=== PATIENT | male | born 1955 | race Caucasian/White ===

== ENCOUNTER 2016-09-25 13:20 | Emergency (ER) | payer OTHER ==
[~2016-09-25 13:20] MED LIST: ASPI-630 PO; DOXA8TAB59 PO; FEXO180T81 PO; FINA5TAB4 PO; MONT10TA9 PO; NEBI2.5T2 PO; PRAV20TA2 PO; TADA5TAB PO
[2016-09-25 13:57] LABS: BASO % 1 % (0-3); EOS # 0.1 x10^3/uL (0.0-0.7); EOS % 2 % (0-3); HEMOGLOBIN 15.6 g/dL (13.0-17.5); LYMPH # 0.8 x10^3/uL (1.0-4.8); LYMPH % 15 % (24-48); MEAN CORPUSCULAR HEMOGLOBIN 31 pg (25-35); MEAN CORPUSCULAR HGB CONC 35 g/dL (31-37); MEAN CORPUSCULAR VOLUME 88 fL (79-100); MONO # 0.3 x10^3/uL (0.0-1.1); MONO % 6 % (0-9); NEUT # 4.1 x10^3uL (1.8-7.7); NEUT % 76 % (31-73); PLATELET COUNT 241 x10^3/uL (140-400); RED BLOOD COUNT 5.09 x10^6/uL (4.30-5.70); RED CELL DISTRIBUTION WIDTH 13.9 % (11.5-14.5); WHITE BLOOD COUNT 5.4 x10^3/uL (4.0-11.0)
[2016-09-25] MEDS ORDERED: IV NORMAL SALINE 1,000ML 1,000 ML IV ONE (14:00)
[2016-09-25] MEDS ORDERED: ONDANSETRON PF 4 MG/2 ML VIAL. IV ONE (14:00)
[2016-09-25] MEDS ORDERED: MECLIZINE 25 MG TABLET PO ONE (14:00)
[2016-09-25 14:09] LABS: ALBUMIN 3.8 g/dL (3.4-5.0); CALCIUM 8.7 mg/dL (8.5-10.1); CREATININE 1.1 mg/dL (0.7-1.3); DIRECT BILIRUBIN 0.1 mg/dL (0.0-0.2); GFR 68.8; POTASSIUM 4.2 mmol/L (3.5-5.1); TOTAL BILIRUBIN 0.5 mg/dL (0.2-1.0)
[2016-09-25] MEDS ORDERED: MECL25TA3 PO (14:12)
[2016-09-25] MEDS ORDERED: ONDA4TAB7 PO (14:13)
--- NOTE | 2016-09-25 14:13 | PHYS DOC ---
Past History Past Medical History: Arrhythmia, High Cholesterol, Hypotension, Prostatitis, Other Past Surgical History: No Surgical History Smoking: Non-smoker Alcohol Use: Occasionally Drug Use: None Adult General Chief Complaint Chief Complaint: NAUSEA/VOMITING/DIARRHEA HPI HPI 52-year-old male with a history of vertigo presenting to the emergency department today with nausea and dizziness that he describes as vertigo. He reports that the room is spinning. His symptoms stopped when he sits still. He used to take meclizine however he hasn't had a episode for quite a while so he doesn't have any. He denies vision changes weakness or tingling. He denies chest pain or shortness of breath. Onset today. Location in her ear. Duration intermittent. Worse with movement. Review of systems is negative for chest pain shortness of breath fevers or chills. He denies focal neurologic deficit. All other review of systems is negative unless otherwise noted in history of present illness. ED course: 60-year-old male presenting to the emergency department with vertigo. Patient was given meclizine and Zofran along with IV fluids. Blood work was obtained. On reexamination the patient's symptoms had improved. Hints testing was negative for occult posterior ischemia. The patient was then discharged home in stable condition to follow up with their primary care physician over the next 2-3 days. They were to return if their symptoms worsened or if they were concerned for any reason. [id number] discharge instructions and return precautions were given. Patient's questions were answered to their satisfaction. Patient is comfortable plan. Review of Systems Review of Systems see above Current Medications Current Medications Current Medications Medications (Trade) Dose Ordered Sig/Davin Start Time Stop Time Status Last Admin Dose Admin Meclizine HCl (Antivert) 25 mg 1X ONCE 09/25/16 14:00 09/25/16 14:01 DC 09/25/16 14:00 25 MG Ondansetron HCl (Zofran) 4 mg 1X ONCE 09/25/16 14:00 09/25/16 14:01 DC 09/25/16 13:59 4 MG Sodium Chloride 1,000 ml @ 1,000 mls/hr 1X ONCE 09/25/16 14:00 09/25/16 14:59 09/25/16 13:59 1,000 MLS/HR Allergies Allergies Allergies Coded Allergies Type Severity Reaction Last Updated Verified midazolam HCl Allergy Mild HEADACHE 04/11/15 Yes Physical Exam Physical Exam Constitutional: Well developed, well nourished, no acute distress, non-toxic appearance. HENT: Normocephalic, atraumatic, bilateral external ears normal, oropharynx moist, no oral exudates, nose normal. [] Eyes: PERRLA, EOMI, conjunctiva normal, no discharge. Neck: Normal range of motion, no tenderness, supple, no stridor. [] Cardiovascular:Heart rate regular rhythm, no murmur Lungs & Thorax: Bilateral breath sounds clear to auscultation [] Abdomen: Bowel sounds normal, soft, no tenderness, no masses, no pulsatile masses. [] Skin: Warm, dry, no erythema, no rash. Back: No tenderness, no CVA tenderness. [] Extremities: No tenderness, no cyanosis, no clubbing, ROM intact, no edema. Neurologic: Mental status: Awake oriented and alert x3 Cranial nerves: Extraocular movements intact, eyebrows danica bilaterally smile symmetric, uvula elevation, shoulder shrug intact, tongue protrusion normal DTRs: 2+ Sensation: equal and normal in all extremities Strength: 5/5 in upper and lower extremities bilaterally Head impulse overlook's and then returns to midline. Lateral rotatory nystagmus upon lateral gaze. No evidence of skew. Psychologic: Affect normal, judgement normal, mood normal. [] Current Patient Data Vital Signs Vital Signs Date Time Temp Pulse Resp B/P (MAP) Pulse Ox O2 Delivery O2 Flow Rate FiO2 09/25/16 13:30 97.8 81 28 97 Room Air Lab Results Laboratory Tests Test 09/25/16 13:45 White Blood Count 5.4 x10^3/uL (4.0-11.0) Red Blood Count 5.09 x10^6/uL (4.30-5.70) Hemoglobin 15.6 g/dL (13.0-17.5) Hematocrit 45.0 % (39.0-53.0) Mean Corpuscular Volume 88 fL (79-100) Mean Corpuscular Hemoglobin 31 pg (25-35) Mean Corpuscular Hemoglobin Concent 35 g/dL (31-37) Red Cell Distribution Width 13.9 % (11.5-14.5) Platelet Count 241 x10^3/uL (140-400) Neutrophils (%) (Auto) 76 % (31-73) H Lymphocytes (%) (Auto) 15 % (24-48) L Monocytes (%) (Auto) 6 % (0-9) Eosinophils (%) (Auto) 2 % (0-3) Basophils (%) (Auto) 1 % (0-3) Neutrophils # (Auto) 4.1 x10^3uL (1.8-7.7) Lymphocytes # (Auto) 0.8 x10^3/uL (1.0-4.8) L Monocytes # (Auto) 0.3 x10^3/uL (0.0-1.1) Eosinophils # (Auto) 0.1 x10^3/uL (0.0-0.7) Basophils # (Auto) 0.0 x10^3/uL (0.0-0.2) EKG EKG [] Radiology/Procedures Radiology/Procedures [] Course & Med Decision Making Course & Med Decision Making Pertinent Labs and Imaging studies reviewed. (See chart for details) [] Dragon Disclaimer Dragon Disclaimer This chart was dictated in whole or in part using Voice Recognition software in a busy, high-work load, and often noisy Emergency Department environment. It may contain unintended and wholly unrecognized errors or omissions. Departure Departure: Impression: Primary Impression: Vertigo Disposition: 01 HOME, SELF-CARE Condition: STABLE Referrals: MCKINLEY FRAGOSO (PCP) Patient Instructions: Vertigo Additional Instructions: Thank you for allowing us to participate in your care today. Followup with your primary care physician in 3 days if your symptoms do not improve. If you do not have a primary care provider you can ask for a list of our primary care providers. Return to the emergency department you have any new or concerning findings. This should be evaluated by the primary care physician and any necessary consulting services for continued management within a few days after discharge. Return to emergency room if you have any new or concerning symptoms including but not limited to fever, chills, nausea, vomiting, intractable pain, any new rashes, chest pain, shortness of air, uncontrolled bleeding, difficulty breathing, and/or vision loss. Scripts Ondansetron Hcl (ZOFRAN) 4 Mg Tablet 1 TAB PO PRN Q6HRS Y for NAUSEA, #6 TAB Prov: PAYAM CHEATHAM MD 09/25/16 Meclizine Hcl (MECLIZINE HCL) 25 Mg Tablet 1 TAB PO PRN TID Y for DIZZINESS, #8 TAB Prov: PAYAM CHEATHAM MD 09/25/16 PAYAM CHEATHAM MD September 25, 2016 14:13
[2016-09-25] MEDS ORDERED: HYDROmorphone PF 1 MG/ML DISP.SYRIN IV ONE (14:45)
[2016-09-25 17:30] VITALS: BP 138/88
== END 2016-09-25 15:35 | disposition home or self-care (01) ==
LOC: ER 13:20
DX: R42 Dizziness and giddiness (principal); E78.00 Pure hypercholesterolemia, unspecified; I49.9 Cardiac arrhythmia, unspecified; Z88.8 Allergy status to other drugs, medicaments and biological substances
CPT/HCPCS: 36415; 80048; 80076; 83690; 85027; 96361; 96374; 96375; 99284; J1170; J2405; J8597; J7030

== ENCOUNTER 2017-10-20 08:11 | Emergency (ER) | payer OTHER ==
[~2017-10-20] VITALS: Ht 182.9 cm; Wt 97.5 kg
[~2017-10-20 08:11] MED LIST changes: +MECL25TA3 PO; +ONDA4TAB7 PO
[2017-10-20] MEDS ORDERED: IPRATRPIUM/ALBUTEROL 0.5/2.5MG 3 ML NEBU. ONE (08:25)
[2017-10-20 08:27] VITALS: BP 139/103
[2017-10-20] MEDS ORDERED: IV NORMAL SALINE 500ML 500 ML IV ONE (08:30)
[2017-10-20] MEDS ORDERED: IPRATRPIUM/ALBUTEROL 0.5/2.5MG 3 ML NEBU. NEB ONE (08:30)
[2017-10-20] MEDS ORDERED: methylPREDNISolone SOD SUCC PF 125 MG/2 ML VIAL. IV ONE (08:30)
[2017-10-20 08:53] LABS: BASO % 1 % (0-3); EOS # 0.1 x10^3/uL (0.0-0.7); EOS % 1 % (0-3); HEMATOCRIT 46.1 % (39.0-53.0); HEMOGLOBIN 15.8 g/dL (13.0-17.5); LYMPH # 1.4 x10^3/uL (1.0-4.8); LYMPH % 20 % (24-48); MEAN CORPUSCULAR HEMOGLOBIN 31 pg (25-35); MEAN CORPUSCULAR HGB CONC 34 g/dL (31-37); MEAN CORPUSCULAR VOLUME 90 fL (79-100); MONO # 0.8 x10^3/uL (0.0-1.1); MONO % 11 % (0-9); NEUT # 4.8 x10^3uL (1.8-7.7); NEUT % 68 % (31-73); PLATELET COUNT 214 x10^3/uL (140-400); RED BLOOD COUNT 5.13 x10^6/uL (4.30-5.70); RED CELL DISTRIBUTION WIDTH 14.3 % (11.5-14.5); WHITE BLOOD COUNT 7.1 x10^3/uL (4.0-11.0)
--- NOTE | 2017-10-20 08:55 | RAD ---
Chest PA and lateral 10/20/2017. Reason for exam: Cough and shortness of breath for 4 days. Comparison is made with a study of 04/11/2015. No infiltrate or effusion is seen. Heart size and pulmonary vascularity appear normal. IMPRESSION: No acute disease. Electronically signed by: Danish Walden Jr., MD (10/20/2017 8:51 AM) [facility] [place]
[2017-10-20 09:15] LABS: ALBUMIN 3.5 g/dL (3.4-5.0); CALCIUM 8.4 mg/dL (8.5-10.1); CREATININE 1.1 mg/dL (0.7-1.3); GFR 68.3; POTASSIUM 3.7 mmol/L (3.5-5.1); TOTAL BILIRUBIN 0.3 mg/dL (0.2-1.0); TOTAL PROTEIN 6.9 g/dL (6.4-8.2)
[2017-10-20] MEDS ORDERED: ALBU8.5H8 INH (09:29)
[2017-10-20] MEDS ORDERED: METH4TAB2 PO (09:29)
[2017-10-20] MEDS ORDERED: AZIT250T PO (09:29)
[2017-10-20] MEDS ORDERED: HYDR115S2 PO (09:29)
[2017-10-20] MEDS ORDERED: cefTRIAXone IV Push 1 GM VIAL. IVP ONE (09:30)
--- NOTE | 2017-10-20 09:30 | PHYS DOC ---
Past History Past Medical History: Arrhythmia, Hypertension Past Surgical History: No Surgical History Smoking: Non-smoker Alcohol Use: None Drug Use: None Adult General Chief Complaint Chief Complaint: COUGH HPI HPI 62-year-old male patient without history of COPD or smoking or asthma complaining of dry cough with nasal congestion and wheezing and shortness of breath for the last 5 days. Patient states he was seen by his primary care physician and treated with allergy medication and 2 days of prednisone but this morning started to have productive cough with yellow sputum and generalized weakness and increasing cough. Patient denies fever and chills, chest pain, diarrhea and constipation. Patient states he had sick contacts at home. Patient states he was traveling by airplane frequency and recently but denies history of PE and DVT. Review of Systems Review of Systems Constitutional: Denies fever or chills [] Eyes: Denies change in visual acuity, redness, or eye pain [] HENT: Reports nasal congestion and sore throat Respiratory: Reports cough and shortness of breath Cardiovascular: No additional information not addressed in HPI [] GI: Denies abdominal pain, nausea, vomiting, bloody stools or diarrhea [] : Denies dysuria or hematuria [] Musculoskeletal: Denies back pain or joint pain [] Integument: Denies rash or skin lesions [] Neurologic: Denies headache, focal weakness or sensory changes [] Endocrine: Denies polyuria or polydipsia [] All other systems were reviewed and found to be within normal limits, except as documented in this note. Current Medications Current Medications Current Medications Medications (Trade) Dose Ordered Sig/Davin Start Time Stop Time Status Last Admin Dose Admin Albuterol/ Ipratropium (Duoneb) 3 ml STK-MED ONCE 10/20/17 08:25 10/20/17 08:26 DC Ceftriaxone Sodium 1 gm/ Sodium Chloride 50 ml @ 100 mls/hr 1X ONCE 10/20/17 09:30 10/20/17 09:59 UNV Ceftriaxone Sodium (Rocephin) 1 gm 1X ONCE 10/20/17 09:30 10/20/17 09:31 Methylprednisolone Sodium Succinate (SOLU-Medrol 125MG VIAL) 125 mg 1X ONCE 10/20/17 08:30 10/20/17 08:53 DC 10/20/17 08:43 125 MG Sodium Chloride 500 ml @ 0 mls/hr 1X ONCE 10/20/17 08:30 10/20/17 08:53 DC 10/20/17 08:44 500 MLS/HR Allergies Allergies Allergies Coded Allergies Type Severity Reaction Last Updated Verified midazolam HCl Allergy Mild HEADACHE 04/11/15 Yes Physical Exam Physical Exam Constitutional: Well developed, well nourished, moderate distress, non-toxic appearance. [] HENT: Normocephalic, atraumatic, bilateral external ears normal, oropharynx moist, no oral exudates, nose normal. [] Eyes: PERRLA, EOMI, conjunctiva normal, no discharge. [] Neck: Normal range of motion, no tenderness, supple, no stridor. [] Cardiovascular:Heart rate regular rhythm, no murmur [] Lungs & Thorax: Mild respiratory distress with diffuse expiratory wheezing Abdomen: Bowel sounds normal, soft, no tenderness, no masses, no pulsatile masses. [] Skin: Warm, dry, no erythema, no rash. [] Back: No tenderness, no CVA tenderness. [] Extremities: No tenderness, no cyanosis, no clubbing, ROM intact, no edema. [] Neurologic: Alert and oriented X 3, normal motor function, normal sensory function, no focal deficits noted. [] Psychologic: Affect normal, judgement normal, mood normal. [] Current Patient Data Vital Signs Vital Signs Date Time Temp Pulse Resp B/P (MAP) Pulse Ox O2 Delivery O2 Flow Rate FiO2 10/20/17 08:49 98 Room Air 10/20/17 08:27 81 22 Lab Results Laboratory Tests Test 10/20/17 08:40 White Blood Count 7.1 x10^3/uL (4.0-11.0) Red Blood Count 5.13 x10^6/uL (4.30-5.70) Hemoglobin 15.8 g/dL (13.0-17.5) Hematocrit 46.1 % (39.0-53.0) Mean Corpuscular Volume 90 fL (79-100) Mean Corpuscular Hemoglobin 31 pg (25-35) Mean Corpuscular Hemoglobin Concent 34 g/dL (31-37) Red Cell Distribution Width 14.3 % (11.5-14.5) Platelet Count 214 x10^3/uL (140-400) Neutrophils (%) (Auto) 68 % (31-73) Lymphocytes (%) (Auto) 20 % (24-48) L Monocytes (%) (Auto) 11 % (0-9) H Eosinophils (%) (Auto) 1 % (0-3) Basophils (%) (Auto) 1 % (0-3) Neutrophils # (Auto) 4.8 x10^3uL (1.8-7.7) Lymphocytes # (Auto) 1.4 x10^3/uL (1.0-4.8) Monocytes # (Auto) 0.8 x10^3/uL (0.0-1.1) Eosinophils # (Auto) 0.1 x10^3/uL (0.0-0.7) Basophils # (Auto) 0.0 x10^3/uL (0.0-0.2) D-Dimer (Yareli) 0.48 mg/L (0.00-0.50) Sodium Level 140 mmol/L (136-145) Potassium Level 3.7 mmol/L (3.5-5.1) Chloride Level 106 mmol/L (98-107) Carbon Dioxide Level 26 mmol/L (21-32) Anion Gap 8 (6-14) Blood Urea Nitrogen 15 mg/dL (8-26) Creatinine 1.1 mg/dL (0.7-1.3) Estimated GFR (Cockcroft-Gault) 68.3 BUN/Creatinine Ratio 14 (6-20) Glucose Level 106 mg/dL (70-99) H Lactic Acid Level 2.2 mmol/L (0.4-2.0) H Calcium Level 8.4 mg/dL (8.5-10.1) L Total Bilirubin 0.3 mg/dL (0.2-1.0) Aspartate Amino Transferase (AST) 77 U/L (15-37) H Alanine Aminotransferase (ALT) 71 U/L (16-63) H Alkaline Phosphatase 82 U/L (46-116) Troponin I Quantitative < 0.017 ng/mL (0-0.055) AF-Prz-H-Type Natriuretic Peptide 91 pg/mL (0-124) Total Protein 6.9 g/dL (6.4-8.2) Albumin 3.5 g/dL (3.4-5.0) Albumin/Globulin Ratio 1.0 (1.0-1.7) EKG EKG [] Radiology/Procedures Radiology/Procedures [][address] [place] [id number] IMAGING REPORT Signed PATIENT: WINDY MAZA ACCOUNT: [id number] : 1955 LOCATION: ER AGE: 62 SEX: M EXAM STATUS: REG ER ORD. PHYSICIAN: RHIANNA FIERRO MD REASON: SOA PROCEDURE: CHEST PA & LATERAL Chest PA and lateral 10/20/2017. Reason for exam: Cough and shortness of breath for 4 days. Comparison is made with a study of 04/11/2015. No infiltrate or effusion is seen. Heart size and pulmonary vascularity appear normal. IMPRESSION: No acute disease. Electronically signed by: Willie Walden Jr., MD (10/20/2017 8:51 AM) [facility] [place]ATED AND SIGNED BY: WILLIE WALDEN Jr, MD DATE: 10/20/17 0827 CC: MCKINLEY FRAGOSO; RHIANNA FIERRO MD ~ Course & Med Decision Making Course & Med Decision Making Pertinent Labs and Imaging studies reviewed. (See chart for details) Evaluation of patient in ER showed 62-year-old male patient with complaining of productive cough and shortness of breath and nasal congestion for several days. Patient had wheezing and respiratory distress and treated with IV fluid, Solu- Medrol, DuoNeb, Rocephin and felt better. Labs including white count, d-dimer, troponin and BNP and chest x-ray was unremarkable. Plan to discharge patient home with diagnosis of acute bronchitis. Dragon Disclaimer Dragon Disclaimer This electronic medical record was generated, in whole or in part, using a voice recognition dictation system. Departure Departure: Impression: Primary Impression: Acute bronchitis Disposition: HOME, SELF-CARE (At 0930) Condition: IMPROVED Referrals: MCKINLEY FRAGOSO (PCP) Patient Instructions: Acute Bronchitis Additional Instructions: Drink plenty of liquids Follow-up with your primary care physician in 3-5 days Return to ER if not getting better Scripts Hydrocodone/Chlorphen P-Stirex (Tussionex Pennkinetic Susp) 115 Ml Trinity.er.12h 5 ML PO BID, #120 ML Prov: RHIANNA FIERRO MD 10/20/17 Albuterol Sulfate (PROAIR HFA INHALER) 8.5 Gm Hfa.aer.ad 2 PUFF INH PRN Q6HRS PRN for SHORTNESS OF BREATH, #1 INHALER 0 Refills Prov: RHIANNA FIERRO MD 10/20/17 Azithromycin (ZITHROMAX) 250 Mg Tablet 1 PKG PO UD, #1 PKG Prov: RHIANNA FIERRO MD 10/20/17 Methylprednisolone (MEDROL) 4 Mg Tab.ds.pk 1 PKG PO UD, #1 PKG Prov: RHIANNA FIERRO MD 10/20/17 RHIANNA FIERRO MD Oct 20, 2017 09:30
== END 2017-10-20 09:47 | disposition home or self-care (01) ==
LOC: ER 08:11
DX: J20.9 Acute bronchitis, unspecified (principal); I10 Essential (primary) hypertension; Z88.8 Allergy status to other drugs, medicaments and biological substances
CPT/HCPCS: 36415; 71046; 80053; 83605; 83880; 84484; 85025; 85379; 94640; 96361; 96374; 96375; 99285; J0696; J2930; J7040; J7620

== ENCOUNTER → 2017-11-29 | Outpatient (CLI) | payer OTHER ==
[~2017-11-29] MED LIST changes: +ALBU8.5H8 INH; +AZIT250T PO; +HYDR115S2 PO; +IOHEXOL 300 MG/ML 75 ML VIAL. IV ONE; +METH4TAB2 PO
--- NOTE | 2017-11-29 12:41 | RAD ---
CT CHEST WO/W CONTRAST Indication: LLQ INFILTRATE, COUGH TIMES 1 MONTH, FELL 1 1/2 WEEKS AGO, LEFT LOWER CHEST PAIN
WO/W PER ORDERING DOCTOR. 75MLS OMNI 300 IV CONTRAST Exposure: One or more of the following individualized dose reduction techniques were utilized for this examination: 1. Automated exposure control 2. Adjustment of the mA and/or kV according to patient size 3. Use of iterative reconstruction technique. Comparison: None are available. Contrast: Imaging is performed both before and after intravenous contrast demonstration as that was specifically requested by the ordering physician. Thoracic aorta: No aneurysm or dissection. Prominent azygos vein noted. Great vessel origins:Patent Pulmonary arteries:Main central arteries appear patent. Thyroid gland:Visualized aspect is unremarkable. Lymph nodes:No significant enlargement Heart: No significant pericadial effusion. Esophagus: Unremarkable Pleural spaces: No significant effusion Lungs: Noncalcified right lower lobe nodule in the posterior costophrenic angle, image 98, series 7, measures 6 mm. Subpleural nodule in the base of the left lower lobe measures 9 mm. No evidence of infiltrate or consolidation. Trachea and central airways: Patent Spine: Mild degenerative spondylosis. Bones: No destructive process. Upper abdomen: Slices through the upper abdomen are limited due to the technique. Gallstone. Impression: 1. Noncalcified pulmonary nodule in right lower lobe and in left lower lobe, largest measures 9 mm. As per Fleischner Society guidelines, consider follow-up CT in 3-6 months. 2. No acute findings in the chest. Electronically signed by: Saul Burnham MD (11/29/2017 12:37 PM) [facility]
== END | disposition home or self-care (01) ==
LOC: CT 08:44
DX: K80.80 Other cholelithiasis without obstruction (principal); M47.894 Other spondylosis, thoracic region; I10 Essential (primary) hypertension; E78.00 Pure hypercholesterolemia, unspecified; R91.1 Solitary pulmonary nodule; Z90.89 Acquired absence of other organs; Z79.01 Long term (current) use of anticoagulants
CPT/HCPCS: 71270; Q9967

== ENCOUNTER 2017-12-09 06:44 | Emergency (ER) | payer OTHER ==
[~2017-12-09] VITALS: Ht 182.9 cm; Wt 113.4 kg
[~2017-12-09 06:44] MED LIST changes: -IOHEXOL 300 MG/ML 75 ML VIAL. IV ONE
[2017-12-09] MEDS ORDERED: CYCL-331 PO (07:11)
[2017-12-09] MEDS ORDERED: HYDR-971 PO (07:11)
--- NOTE | 2017-12-09 07:11 | PHYS DOC ---
Past History Past Medical History: A-Fib, Arrhythmia, Hypotension Past Surgical History: No Surgical History Smoking: Non-smoker Alcohol Use: None Drug Use: None Adult General Chief Complaint Chief Complaint: BACK PAIN - NO INJURY HPI HPI 62-year-old male patient states he tried to lift the not heavy luggage yesterday and felt sudden onset of pain in his right side of lower back as a constant pain without radiation that getting worse with movement. Patient denies nausea and vomiting, abdominal pain, chest pain and shortness of breath, focal neuro deficit. Review of Systems Review of Systems Constitutional: Denies fever or chills [] Eyes: Denies change in visual acuity, redness, or eye pain [] HENT: Denies nasal congestion or sore throat [] Respiratory: Denies cough or shortness of breath [] Cardiovascular: No additional information not addressed in HPI [] GI: Denies abdominal pain, nausea, vomiting, bloody stools or diarrhea [] : Denies dysuria or hematuria [] Musculoskeletal: Reports back pain ,denies joint pain [] Integument: Denies rash or skin lesions [] Neurologic: Denies headache, focal weakness or sensory changes [] Endocrine: Denies polyuria or polydipsia [] All other systems were reviewed and found to be within normal limits, except as documented in this note. Allergies Allergies Allergies Coded Allergies Type Severity Reaction Last Updated Verified midazolam HCl Allergy Mild HEADACHE 12/09/17 Yes Physical Exam Physical Exam Constitutional: Well developed, well nourished, moderate distress, non-toxic appearance. [] HENT: Normocephalic, atraumatic Eyes: PERRLA, EOMI, conjunctiva normal, no discharge. [] Neck: Normal range of motion, no tenderness, supple, no stridor. [] Cardiovascular:Heart rate regular rhythm, no murmur [] Lungs & Thorax: Bilateral breath sounds clear to auscultation [] Abdomen: Bowel sounds normal, soft, no tenderness, no masses, no pulsatile masses. [] Skin: Warm, dry, no erythema, no rash. [] Back: No midline tenderness, limited range of motion because of pain, right paraspinal muscle spasm, no CVA tenderness. [] Extremities: No tenderness, no cyanosis, no clubbing, ROM intact, no edema. [] Neurologic: Alert and oriented X 3, normal motor function, normal sensory function, no focal deficits noted. [] Psychologic: Affect normal, judgement normal, mood normal. [] Current Patient Data Vital Signs Vital Signs Date Time Temp Pulse Resp B/P (MAP) Pulse Ox O2 Delivery O2 Flow Rate FiO2 12/09/17 06:45 98.0 96 20 94 Room Air EKG EKG [] Radiology/Procedures Radiology/Procedures [] Course & Med Decision Making Course & Med Decision Making discharge: I've spoken with the patient and/or caregivers. I've explained the patient's condition, diagnosis and treatment plan based on information available to me at this time. I've answered the patient's and/or caregivers questions and addressed any concerns. The patient and/or caregivers have a good understanding the patient's diagnosis, condition and treatment plan as can be expected at this point. Vital signs have been stabilized. The patient's condition is stable for discharge from the emergency department. The patient will pursue further outpatient evaluation with her primary care provider or other designated consulting physician as outlined in the discharge instructions. Patient and/or caregivers are agreeable to this plan of care and follow-up instructions have been explained in detail. The patient and/or caregivers have received these instructions in written format and expressed understanding of these discharge instructions. The patient and her caregivers are aware that if any significant change in condition or worsening of symptoms should prompt him to immediately return to this of the closest emergency department. If an emergent department is not readily available I would encourage him to call 911. Ilene Disclaimer Ilene Disclaimer This electronic medical record was generated, in whole or in part, using a voice recognition dictation system. Departure Departure: Impression: Primary Impression: Acute lumbosacral myofascial strain Disposition: HOME, SELF-CARE (At 0730) Condition: IMPROVED Referrals: MCKINLEY FRAGOSO (PCP) Patient Instructions: Lumbosacral Strain Additional Instructions: Apply ice on the affected area Follow-up with your primary care physician in 3-5 days Return to ER if not getting better Scripts Cyclobenzaprine Hcl (CYCLOBENZAPRINE HCL) 10 Mg Tablet 1 TAB PO TID, #30 TAB Prov: RHIANNA FIERRO MD 12/09/17 Hydrocodone Bit/Acetaminophen (NORCO 5-325 TABLET) 1 Each Tablet 1 TAB PO PRN Q6HRS PRN for PAIN, #14 TAB 0 Refills Prov: RHIANNA FIERRO MD 12/09/17 RHIANNA FIERRO MD Dec 09, 2017 07:11
[2017-12-09] MEDS ORDERED: CYCLOBENZAPRINE 10 MG TABLET. ONE (07:15)
[2017-12-09] MEDS ORDERED: HYDROcodone/APAP 5/325MG 1 TAB TABLET ONE (07:15)
[2017-12-09] MEDS ORDERED: KETOROLAC 60 MG/2 ML VIAL. IM ONE (07:30)
[2017-12-09] MEDS ORDERED: HYDROcodone/APAP 5/325MG 1 TAB TABLET PO ONE (07:30)
[2017-12-09] MEDS ORDERED: CYCLOBENZAPRINE 10 MG TABLET. PO ONE (07:30)
[2017-12-09 07:33] VITALS: BP 141/78
== END 2017-12-09 07:33 | disposition home or self-care (01) ==
LOC: ER 06:44
DX: S39.012A Strain of muscle, fascia and tendon of lower back, initial encounter (principal); I48.91 Unspecified atrial fibrillation; Z88.8 Allergy status to other drugs, medicaments and biological substances; X50.0XXA Overexertion from strenuous movement or load, initial encounter; Y93.89 Activity, other specified; Y92.89 Other specified places as the place of occurrence of the external cause; Y99.8 Other external cause status
CPT/HCPCS: 96372; 99283; J1885

== ENCOUNTER → 2019-04-07 | Outpatient (CLI) | payer OTHER ==
[~2019-04-07] MED LIST changes: +ALBU2.5V8 INH; -ALBU8.5H8 INH; +CYCL-331 PO; +HYDR-3165 PO; +MONT10TA80 PO; -MONT10TA9 PO
[2019-04-07 09:08] LABS: ALBUMIN 3.6 g/dL (3.4-5.0); ALBUMIN/GLOBULIN RATIO 1.2 (1.0-1.7); CALCIUM 8.9 mg/dL (8.5-10.1); POTASSIUM 4.4 mmol/L (3.5-5.1); TOTAL BILIRUBIN 0.5 mg/dL (0.2-1.0); TOTAL PROTEIN 6.7 g/dL (6.4-8.2)
== END | disposition home or self-care (01) ==
LOC: LAB 08:09
PROVIDERS: ATTEND Nurse Practitioner
DX: E78.5 Hyperlipidemia, unspecified (principal)
CPT/HCPCS: 36415; 80053; 82550

== ENCOUNTER → 2019-04-17 | Outpatient (CLI) | payer OTHER ==
[2019-04-17 11:06] LABS: ALBUMIN 3.9 g/dL (3.4-5.0); ALBUMIN/GLOBULIN RATIO 1.1 (1.0-1.7); CALCIUM 9.1 mg/dL (8.5-10.1); POTASSIUM 4.2 mmol/L (3.5-5.1); TOTAL BILIRUBIN 0.5 mg/dL (0.2-1.0); TOTAL PROTEIN 7.3 g/dL (6.4-8.2)
== END | disposition home or self-care (01) ==
LOC: LAB 09:42
PROVIDERS: ATTEND Nurse Practitioner
DX: E78.5 Hyperlipidemia, unspecified (principal)
CPT/HCPCS: 36415; 80053; 82550

== ENCOUNTER 2019-08-23 00:23 | Emergency (ER) | payer OTHER ==
[~2019-08-23] VITALS: Ht 182.9 cm; Wt 108.0 kg
[~2019-08-23 00:23] MED LIST changes: +MECL-75 PO; -MECL25TA3 PO
--- NOTE | 2019-08-23 00:52 | PHYS DOC ---
Past History Past Medical History: A-Fib, Arrhythmia, Asthma, Hypotension Additional Past Medical Histor: SVT Past Surgical History: No Surgical History Smoking: Non-smoker Alcohol Use: None Drug Use: None General Adult EDM: Chief Complaint: CHEST PAIN HPI: HPI: 63-year-old male with past medical history of SVT presents with report of palpitations upon going to bed this evening. Reports heart rate got up to the 1 40s and then patient performs some vagal maneuvers. Patient does report interval improvement of symptoms however upon laying back down to bed patient's heart rate jumped up again to the 180s. At this point patient decided to present to the ER for further evaluation. Patient does report some asthmatic cough for which he was seen at [facility] and started on erythromycin and prednisone. Denies fever/chills. Denies leg swelling or calf tenderness. Denies history of DVT/PE. Reports upon arrival to ED, symptoms have improved. Review of Systems: Review of Systems: Constitutional: Denies fever or chills Eyes: Denies redness or eye pain HENT: Denies nasal congestion or sore throat Respiratory: Denies cough or shortness of breath Cardiovascular: Reports palpitations and chest discomfort. GI: Denies abdominal pain, nausea, or vomiting : Denies dysuria or hematuria Musculoskeletal: Denies back pain or joint pain Integument: Denies rash or skin lesions Neurologic: Denies headache, focal weakness or sensory changes Complete systems were reviewed and found to be within normal limits, except as documented in this note. Heart Score: HEART Score for Chest Pain: HEART Score for Chest Pain Response (Comments) Value History Slighlty/Non-Suspicious 0 ECG Normal 0 Age >45 - < 65 1 Risk Factors 1 or 2 Risk Factors 1 Troponin < Normal Limit 0 Total 2 Risk Factors: Risk Factors: DM, Current or recent (<one month) smoker, HTN, HLP, family history of CAD, obesity. Risk Scores: Score 0 - 3: 2.5% MACE over next 6 weeks - Discharge Home Score 4 - 6: 20.3% MACE over next 6 weeks - Admit for Clinical Observation Score 7 - 10: 72.7% MACE over next 6 weeks - Early Invasive Strategies Allergies: Allergies: Allergies Coded Allergies Type Severity Reaction Last Updated Verified midazolam HCl Allergy Mild HEADACHE 12/09/17 Yes Physical Exam: PE: Constitutional: Well developed, well nourished, no acute distress, non-toxic appearance HENT: Normocephalic, atraumatic, oropharynx moist Eyes: Conjunctiva normal, no discharge Neck: Normal range of motion, no tenderness, supple Cardiovascular: Heart rate normal, regular rhythm Lungs & Thorax: Bilateral breath sounds clear to auscultation, no wheezing Abdomen: Soft, no tenderness Skin: Warm, dry, no erythema, no rash Extremities: No tenderness, ROM intact, no edema Neurologic: Alert and oriented X 3, no focal deficits noted Psychologic: Affect normal, judgment normal EKG: EKG: @0028 Sinus tachycardia at 101bpm, NO ST elevation, low limb lead voltage Radiology/Procedures: Radiology/Procedures: CXR 2 view (preliminary interpretation by ED physician): NO acute process. Course & Med Decision Making: Course & Med Decision Making Pertinent Labs and Imaging studies reviewed. (See chart for details) Patient presents with report of palpitations. History of SVT. Reports compliance with his medications. Patient reports interval improvement of symptoms upon arrival to the ER. EKG stable. Labs obtained and posted to chart. Troponin within normal limits. Hypokalemia addressed. Chest x-ray without acute process. HEART score 2. Thyroid studies pending. Patient stable for discharge with outpatient follow-up with PCP. Discussed findings and plan with patient, who acknowledges understanding and agreement. Ilene Disclaimer: Ilene Disclaimer: This electronic medical record was generated, in whole or in part, using a voice recognition dictation system. Departure Departure: Impression: Primary Impression: Palpitations Additional Impression: Hypokalemia Disposition: HOME, SELF-CARE Condition: IMPROVED Referrals: MCKINLEY FRAGOSO (PCP) Patient Instructions: Hypokalemia, Palpitations, [id number], Potassium Content of Foods Additional Instructions: Please follow closely with your family physician and/or non destructive testing technician. BREA WILSON DO Aug 23, 2019 00:52
[2019-08-23 01:09] LABS: CALCIUM 8.9 mg/dL (8.5-10.1); CREATININE 1.2 mg/dL (0.7-1.3); GFR 61.6; POTASSIUM 3.4 mmol/L (3.5-5.1)
[2019-08-23 01:10] LABS: BASO % 0 % (0-3); EOS % 0 % (0-3); HEMATOCRIT 44.3 % (39.0-53.0); HEMOGLOBIN 14.9 g/dL (13.0-17.5); LYMPH # 1.4 x10^3/uL (1.0-4.8); LYMPH % 16 % (24-48); MEAN CORPUSCULAR HEMOGLOBIN 30 pg (25-35); MEAN CORPUSCULAR HGB CONC 34 g/dL (31-37); MEAN CORPUSCULAR VOLUME 90 fL (79-100); MONO # 0.7 x10^3/uL (0.0-1.1); MONO % 8 % (0-9); NEUT # 6.8 x10^3uL (1.8-7.7); NEUT % 76 % (31-73); PLATELET COUNT 216 x10^3/uL (140-400); RED CELL DISTRIBUTION WIDTH 14.7 % (11.5-14.5); WHITE BLOOD COUNT 8.9 x10^3/uL (4.0-11.0)
[2019-08-23 01:22] LABS: ALBUMIN 3.4 g/dL (3.4-5.0); ALBUMIN/GLOBULIN RATIO 1.2 (1.0-1.7); TOTAL BILIRUBIN 0.2 mg/dL (0.2-1.0); TOTAL PROTEIN 6.2 g/dL (6.4-8.2)
[2019-08-23] MEDS ORDERED: ASPIRIN 325 MG TABLET PO ONE (01:30)
[2019-08-23 02:00] VITALS: BP 119/73
[2019-08-23] MEDS ORDERED: POTASSIUM CHLORIDE 20 MEQ TABLET.ER. PO ONE (02:00)
--- NOTE | 2019-08-23 02:22 | RAD ---
Study: CR CHEST PA LATERAL Indication: Cough. Comparison: 11/19/2017; CT chest 11/29/2017 Findings: Similar configuration of the cardiomediastinal silhouette and itzel. Apparent opacity along the left hemidiaphragm on the PA view is without a correlate on the lateral view and favored unlikely a consolidation. Overall aeration pattern of the lungs is not significantly different. No pleural effusion or pneumothorax. On the lateral view possible nodule projecting just above the left hemidiaphragm where a nodule was seen on the prior CT. Impression: 1. No acute radiographic abnormality of the chest. An apparent opacity superimposed on the left hemidiaphragm on the PA view is without a discrete correlate on the lateral view and favored related to superimposition of osseous and soft tissue structures. 2. Left lower lobe nodule approaching the diaphragm measures similar in size to the 2018 CT given differences in technique but assessment for stability would be better afforded by nonemergent CT. Electronically signed by: PASTOR STEVENS MD (08/23/2019 2:19 AM) [id number]
[2019-08-23 10:22] LABS: FREE T4 1.07 ng/dL (0.76-1.46); THYROID STIM HORMONE (TSH) 2.353 uIU/mL (0.358-3.740)
--- NOTE | 2019-08-23 19:14 | EKG ---
[address] [address] Test Date: 2019-08-23 Test Time: 00:28:56 Pat Name: WINDY MAZA Department: Room: Gender: M Gta: : 1955 Requested By: BREA WILSON Order Number: [id number] Reading MD: Driss Linn Measurements Intervals Bailey Rate: 101 P: 26 WA: 164 QRS: 77 QRSD: 80 T: 12 QT: 396 QTc: 514 Interpretive Statements SINUS TACHYCARDIA LOW LIMB LEAD VOLTAGE Electronically Signed On 08-23-2019 20:18:03 CDT by Driss Linn
== END 2019-08-23 01:46 | disposition home or self-care (01) ==
LOC: ER 00:23
DX: R00.2 Palpitations (principal); E87.6 Hypokalemia; J45.909 Unspecified asthma, uncomplicated; I48.91 Unspecified atrial fibrillation; Z88.8 Allergy status to other drugs, medicaments and biological substances
CPT/HCPCS: 36415; 71046; 80053; 83690; 83735; 83880; 84439; 84443; 84481; 84484; 85025; 85610; 85730; 93005; 99285-25

== ENCOUNTER → 2019-10-14 | Outpatient (CLI) | payer OTHER ==
--- NOTE | 2019-10-14 08:19 | RAD ---
EXAM: CT Chest without IV contrast INDICATION: Reason: PERSISTENT COUGH / Spl. Instructions: / History: TECHNIQUE: Multi-detector row CT images were acquired from the thoracic inlet through the upper abdomen without the use of IV contrast. Sagittal and coronal images were acquired from the transaxial data. All CT scans performed at this facility utilize dose optimization techniques as appropriate to the exam, including the following: Automated exposure control and adjustment of the mA and/or KV according to patient size (this includes techniques or standardized protocols for targeted exams where dose is indication/reason for exam). COMPARISON: Noncontrast chest CT 11/29/2017, and 07/05/2011 chest x-ray 08/23/2019 FINDINGS: The absence of IV contrast limits evaluation of soft tissue pathology. CARDIOVASCULAR: Unremarkable MEDIASTINUM & TODD: No adenopathy or masses. Calcified left inferior hilar lymph nodes are again evident. Central airway is normal in caliber and patent with no filling defects.. LUNGS: An 8 mm left lower lobe pulmonary nodule near the left diaphragm (image 80 of series 2) is unchanged in over 8 years (image 62 of series 4 on the comparison study of 2011). A slightly more anterior 4 mm nodule is also unchanged. No pulmonary infiltrate, new nodule, or other focal abnormality. PLEURAL SPACE: No pleural effusions or pneumothorax. OSSEOUS & SOFT TISSUE: Unremarkable ABDOMEN: The visualized portions of the upper abdomen shows surgical changes suggestive of a previous gastric fundoplication. Incidental large cholelithiasis is also noted, gallstone measuring 2.4 cm the gallbladder collapsed around it and showing questionable wall thickening at the fundus as well. IMPRESSION: 1. Stable evidence of granulomatous disease in the left lower lobe and left hilum with no new, acute superimposed process. No specific findings to explain persistent cough. 2. Cholelithiasis with large gallstone and questionable wall thickening at the fundus. Some surgeons consider gallstones this large to be risk factors for neoplasia. Recommend an elective surgical consult. Electronically signed by: Ximena Gaspar MD (10/14/2019 8:16 AM) [id number]
== END | disposition home or self-care (01) ==
LOC: CT 07:39
PROVIDERS: ATTEND Internal Medicine Critical Care Medicine
DX: R91.1 Solitary pulmonary nodule (principal); K80.20 Calculus of gallbladder without cholecystitis without obstruction
CPT/HCPCS: 71250

== ENCOUNTER → 2019-11-16 | Outpatient (CLI) | payer OTHER ==
[~2019-11-16] MED LIST changes: +IOHEXOL 300 MG/ML 75 ML VIAL. IV ONE
--- NOTE | 2019-11-16 09:29 | RAD ---
PQRS Compliance Statement: One or more of the following individualized dose reduction techniques were utilized for this examination: 1. Automated exposure control 2. Adjustment of the mA and/or kV according to patient size 3. Use of iterative reconstruction technique CT SOFT TISSUE NECK W/CONTRAST 11/16/2019 12:00 AM Indication: Persistent cough. Feels something in the basilar throat. COMPARISON: None available. TECHNIQUE: Multiple axial CT images of the neck soft tissues were obtained after the intravenous administration of nonionic contrast. Coronal and sagittal reformats are provided. FINDINGS: No suspicious enhancement is identified within the visualized portions of the posterior fossa and brain parenchyma. Visualized orbits are intact. Bilateral maxillary antrostomy and infundibulectomy changes are present. There is mild to moderate mucosal thickening of the left maxillary sinus. Nasal septum is predominantly midline. Pterygopalatine fossa is normal in appearance. Senior Landscape Architect space appears intact bilaterally. Parotid and submandibular glands are normal in appearance. Visualized portions of the oral cavity, floor of mouth and sublingual space appear normal. Parapharyngeal fat is preserved. No retropharyngeal effusion is identified. Nasopharynx including the fossa Rosenmuller appears normal. Retropharyngeal course of the internal carotid arteries is noted bilaterally. No significant tonsillar hypertrophy. Mild luminal narrowing involving the inferior aspect of the oropharynx. Hypopharynx is intact. Epiglottis is normal in appearance. Hyoid, thyroid, cricoid and arytenoid cartilages are intact. Larynx and trachea appear normal. Thyroid gland is normal in appearance. No pathologically enlarged cervical lymph nodes are identified. There is mild cervical spondylosis centered at C6-C7. Maxilla and mandible appear intact. No suspicious abnormalities identified within the visualized portions of the upper mediastinum and lungs. IMPRESSION: 1. There is mild luminal narrowing of the inferior margin of the hypopharynx without significant mucosal edema or suspicious mass. Correlate with any recent history of upper respiratory infection. 2. No pathologically enlarged cervical lymph nodes. Electronically signed by: Renuka Worley MD (11/16/2019 9:26 AM) [id number]
== END | disposition home or self-care (01) ==
LOC: CT 08:19
PROVIDERS: ATTEND Internal Medicine Critical Care Medicine
DX: E04.1 Nontoxic single thyroid nodule (principal); R05 Cough; K21.9 Gastro-esophageal reflux disease without esophagitis; J34.89 Other specified disorders of nose and nasal sinuses; M47.812 Spondylosis without myelopathy or radiculopathy, cervical region
CPT/HCPCS: 70491; Q9967

== ENCOUNTER → 2020-05-31 | Outpatient (CLI) | payer OTHER ==
[~2020-05-31] MED LIST changes: -IOHEXOL 300 MG/ML 75 ML VIAL. IV ONE
[2020-05-31 09:10] LABS: ALBUMIN 3.8 g/dL (3.4-5.0); ALBUMIN/GLOBULIN RATIO 1.2 (1.0-1.7); CALCIUM 9.3 mg/dL (8.5-10.1); CREATININE 1.2 mg/dL (0.7-1.3); GFR 61.3; POTASSIUM 4.2 mmol/L (3.5-5.1); TOTAL BILIRUBIN 0.5 mg/dL (0.2-1.0)
== END ==
LOC: LAB 07:51
PROVIDERS: ATTEND Nurse Practitioner
DX: E78.00 Pure hypercholesterolemia, unspecified (principal)
CPT/HCPCS: 36415; 80053; 80061

== ENCOUNTER 2020-07-18 03:35 | Emergency (ER) | payer OTHER ==
[~2020-07-18] VITALS: Ht 182.9 cm; Wt 108.0 kg
[2020-07-18 03:46] VITALS: BP 119/73
--- NOTE | 2020-07-18 03:56 | PHYS DOC ---
Past History Past Medical History: A-Fib, Arrhythmia, Asthma, Gallstones, GERD, Hypertension, Hypotension Additional Past Medical Histor: SVT Past Medical History Sleep Apnea (GENIE GAMBOA MD) Past Medical History: Gallstones, Other (LI BEAUCHAMP DO) Past Surgical History: No Surgical History (GENIE GAMBOA MD) Smoking: Non-smoker Alcohol Use: None Drug Use: None (GENIE GAMBOA MD) General Adult EDM: Chief Complaint: ABDOMINAL PAIN HPI: HPI: " We went to eat at [employer] last night.. felt lazy ...and I just had a burger.... but I felt bad before going to sleep...then I tossed and turned all night.. I just hurt..nausea.." " I ve had a big gall stone before..big as pecan..." " They said in past if I was not hurting too much.. 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 Pain started somewhat after eating a high-fat meal at [employer]. However was having somewhat considerable discomfort when he went to bed at 10 PM. Epigastric right pain is severe currently. No history of trauma pain persisted throughout the night which caused his presentation today in the emergency department. Patient does have significant past medical history of biliary colic with a large gallbladder stone describes as a size of a pecan. Patient does have a history of sleep apnea, and has followed with Dr. Garcia cardiology in the past. Patient also follows with Dr. Schulte pulmonary for his sleep apnea, and his primary care is at [place]. Patient did get a Covid vaccination but during I completed on 06/16. No recent travel or specific ill contacts. ate the same meal as patient however she did not get sick. No history of bad food intake. Patient patient describes epigastric as severe. No history of trauma. Patient has not taken his hypertensive meds tonight. (GENIE GAMBOA MD) Review of Systems: Review of Systems: Constitutional: Denies fever or chills Eyes: Denies change in visual acuity HENT: Denies nasal congestion or sore throat Respiratory: Denies cough or shortness of breath Cardiovascular: Denies chest pain or edema GI: Severe right upper quadrant abdominal pain, nausea, vomiting. Denies, bloody stools or diarrhea : Denies dysuria Musculoskeletal: Denies back pain or joint pain Integument: Denies rash Neurologic: Denies headache, focal weakness or sensory changes Endocrine: Denies polyuria or polydipsia Lymphatic: Denies swollen glands Psychiatric: Denies depression or anxiety (GENIE GAMBOA MD) Family History: Family History: Noncontributory presentation (GENIE GAMBOA MD) Current Medications: Current Meds: See nursing for home meds (GENIE GAMBOA MD) Allergies: Allergies: Allergies Coded Allergies Type Severity Reaction Last Updated Verified midazolam HCl Allergy Mild HEADACHE 08/23/19 Yes (GENIE GAMBOA MD) Physical Exam: PE: Constitutional: Well developed, well nourished, in acute distress, non-toxic appearance. [] HENT: Normocephalic, atraumatic, bilateral external ears normal, oropharynx moist, no oral exudates, nose normal. [] Eyes: PERRLA, EOMI, conjunctiva normal, no discharge. [] Neck: Normal range of motion, no tenderness, supple, no stridor. [] Cardiovascular:Heart rate regular rhythm, no murmur [] Lungs & Thorax: Bilateral breath sounds clear to auscultation [] Abdomen: Bowel sounds normal, soft, epigastric and right upper quadrant tenderness, no masses, no pulsatile masses. Obese. Rebound to right upper quadrant and epigastric Skin: Warm, dry, no erythema, no rash. [] Back: No tenderness, no CVA tenderness. [] Extremities: No tenderness, no cyanosis, no clubbing, ROM intact, no edema. No psoas sign. No cording appreciated Neurologic: Alert and oriented X 3, normal motor function, normal sensory function, no focal deficits noted. [] Psychologic: Affect anxious, judgement normal, mood normal. [] (GENIE GAMBOA MD) Current Patient Data: Vital Signs: Vital Signs Date Time Temp Pulse Resp B/P (MAP) Pulse Ox O2 Delivery O2 Flow Rate FiO2 07/18/20 03:46 97.8 77 18 119/73 (88) 98 Room Air (GENIE GAMBOA MD) EKG: EKG: My interpretation EKG shows a sinus rhythm at 76 bpm. Low voltage in limb leads. But no findings of acute STEMI of contralateral changes. [] (GENIE GAMBOA MD) Radiology/Procedures: Radiology/Procedures: [][address] [address] IMAGING REPORT Signed PATIENT: WINDY MAZA ACCOUNT: [id number] : 1955 LOCATION: ER AGE: 64 SEX: M EXAM STATUS: REG ER ORD. PHYSICIAN: GENIE GAMBOA MD REASON: epigastric pain PROCEDURE: ACUTE ABDOMEN SERIES PA chest and AP upright supine abdomen x-rays HISTORY: Epigastric abdominal pain. FINDINGS: Heart size normal. Mediastinum is unremarkable. No pulmonary opacities. No pleural effusions. No pneumoperitoneum. Mild volume of stool. No dilated bowel loops or abnormal air-fluid levels. Bones and soft tissues are unremarkable. There is a left pelvic indeterminate 4 mm calcification, statistically most likely a phlebolith, although if there is a history of renal colic symptoms a distal left ureteral calculus at the UVJ short also be considered. IMPRESSION: No bowel obstruction. No acute process in the chest. Pelvic calcification as described above. Electronically signed by: Ayanna Ornelas MD (07/18/2020 5:42 AM) [facility] [place]CTATED AND SIGNED BY: AYANNA ORNELAS MD DATE: 07/18/20 0539 CC: MCKINLEY FRAGOSO; GENIE GAMBOA MD ~MTH0 0 (GENIE GAMBOA MD) Radiology/Procedures: [address] [address] IMAGING REPORT Signed PATIENT: WINDY MAZA ACCOUNT: [id number] : 1955 LOCATION: ER AGE: 64 SEX: M EXAM STATUS: REG ER ORD. PHYSICIAN: GENIE GAMBOA MD REASON: epigastric pain PROCEDURE: ACUTE ABDOMEN SERIES PA chest and AP upright supine abdomen x-rays HISTORY: Epigastric abdominal pain. FINDINGS: Heart size normal. Mediastinum is unremarkable. No pulmonary opacities. No pleural effusions. No pneumoperitoneum. Mild volume of stool. No dilated bowel loops or abnormal air-fluid levels. Bones and soft tissues are unremarkable. There is a left pelvic indeterminate 4 mm calcification, statistically most likely a phlebolith, although if there is a history of renal colic symptoms a distal left ureteral calculus at the UVJ short also be considered. IMPRESSION: No bowel obstruction. No acute process in the chest. Pelvic calcification as described above. Electronically signed by: Ayanna Ornelas MD (07/18/2020 5:42 AM) [facility] [place] DICTATED AND SIGNED BY: AYANNA ORNELAS MD DATE: 07/18/20538 CC: MCKINLEY FRAGOSO; GENIE GAMBOA MD ~MTH0 [address] [place] [address] IMAGING REPORT Signed PATIENT: WINDY MAZA ACCOUNT: [id number] : 1955 LOCATION: ER AGE: 64 SEX: M EXAM STATUS: REG ER ORD. PHYSICIAN: LI BEAUCHAMP DO REASON: right upper quadrant abdominal pain, hx of gallstones PROCEDURE: ABDOMEN LTD US ABDOMEN LTD History: Right upper quadrant pain, history of gallstones. Comparison: CT abdomen and pelvis 07/18/2020. Technique: Sonographic examination of the right upper quadrant. Findings: Liver: The hepatic echotexture is diffusely increased. No focal hepatic lesions. Hepatopetal flow in the portal vein. Gallbladder: Multiple mobile shadowing gallstones are present in the gallbladder lumen. No gallbladder wall thickening or pericholecystic fluid. Sonographic Mohan's sign is reportedly positive. Bile ducts: The common duct measures 5 mm. Pancreas: Partially visualized pancreas is unremarkable. The remainder of the pancreas is limited by bowel gas artifact. Right kidney: 12.6 cm in length. No focal lesion, calculi or hydronephrosis. Aorta/IVC: Visualized portions are unremarkable. Other: No ascites. Impression: 1. Cholelithiasis with positive sonographic Mohan's sign concerning for acute cholecystitis. No gallbladder wall thickening or pericholecystic fluid as secondary signs of cholecystitis. 2. Hepatic steatosis. Electronically signed by: Nickolas Vazquez MD (07/18/2020 9:16 AM) [facility] DICTATED AND SIGNED BY: NICKOLAS VAZQUEZ MD DATE: 07/18/20911 CC: MCKINLEY FRAGOSO; LI BEAUCHAMP DO ~MTH0 [address] [place] [address] IMAGING REPORT Signed PATIENT: WINDY MAZA ACCOUNT: [id number] : 1955 LOCATION: ER AGE: 64 SEX: M EXAM STATUS: REG ER ORD. PHYSICIAN: GENIE GAMBOA MD REASON: RUQ PAIN, H/O LARGE GALL STONE. OMNI 300, 75ml & OMNI 240, 30ml PROCEDURE: CT ABD PELV W/ORAL&IV CONTRAST Study: CT abdomen/pelvis with intravenous contrast Indication: Right upper quadrant pain. Comparison: Correlation is made to a CT chest from 10/14/2019 Technique: Helical CT imaging performed of the abdomen and pelvis after the intravenous administration of 75 cc contrast. Sagittal and coronal reformats were obtained. One or more of the following individualized dose reduction techniques were utilized for this examination: 1. Automated exposure control 2. Adjustment of the mA and/or kV according to patient size 3. Use of iterative reconstruction technique. Findings: No acute abnormality at the lower chest. Suspected mild hepatic steatosis. Gallstones with the dominant stone located within the proximal body segment. On the coronal images, faint haziness of the pericholecystic fat. Nondilated biliary tree. Within normal limits pancreas, spleen and adrenal glands. No complex renal cyst or mass. No nephrolithiasis or collecting system dilatation. Urinary bladder wall thickness is within normal limits. Prominence of the prostate gland me asuring 4.7 cm transverse. Colonic diverticulosis without diverticulitis. Normal appendix. Nonobstructed small bowel. Poorly evaluated stomach on account of underdistention. Within normal limits major vasculature. Small fat-containing umbilical hernia. No concerning lymph nodes based on size. No free fluid or pneumoperitoneum. Scattered degenerative osseous findings. No acute or aggressive abnormality. Impression: 1. Gallstones with the large dominant stone located within the proximal body segment. Mild haziness of the pericholecystic fat raises the question of acute cholecystitis especially if there is right upper quadrant pain. Ultrasound or HIDA scan would allow for further assessment as deemed clinically necessary. 2. Additional chronic observations detailed in the body the report. Electronically signed by: PASTOR STEVENS MD (07/18/2020 7:23 AM) [id number] DICTATED AND SIGNED BY: PASTOR STEVENS MD DATE: 07/18/20707 CC: MCKINLEY FRAGOSO; GENIE GAMBOA MD ~MTH0 0 (LI BEAUCHAMP DO) Heart Score: C/O Chest Pain: No HEART Score for Chest Pain: HEART Score for Chest Pain Response (Comments) Value History Slighlty/Non-Suspicious 0 ECG Normal 0 Age >45 - < 65 1 Risk Factors 1 or 2 Risk Factors 1 Troponin < Normal Limit 0 Total 2 Risk Factors: Risk Factors: DM, Current or recent (<one month) smoker, HTN, HLP, family history of CAD, obesity. Risk Scores: Score 0 - 3: 2.5% MACE over next 6 weeks - Discharge Home Score 4 - 6: 20.3% MACE over next 6 weeks - Admit for Clinical Observation Score 7 - 10: 72.7% MACE over next 6 weeks - Early Invasive Strategies (GENIE GAMBOA MD) C/O Chest Pain: N/A (LI BEAUCHAMP DO) Course & Med Decision Making: Course & Med Decision Making Pertinent Labs and Imaging studies reviewed. (See chart for details) Patient gradually has been provement of epigastric and right upper quadrant pain. At shift change patient explains his pain is minimal. CT of abdomen pending at shift change. Impression: 1. Abdomen pain 2. Suspect a component of biliary colic- 3. History of sleep apnea- on Bipap 4. History of hypertension 5. Has completed Covid vaccinations last on 06/16 Moderna [] (GENIE GAMBOA MD) Course & Med Decision Making Patient is a 64-year-old male who presented to ER due to right upper quad abdominal pain, he had no fever, his white blood cell count normal, his liver function tests are normal. CT scan of his abdomen pelvis showed with no gallbladder wall thickening or no pericholecystic fluid there is no evidence of cholecystitis. Ultrasound of the gallbladder show no gallbladder wall thickening or pericholecystic fluid to indicate an acute cholecystitis. Patient had mild positive Mohan sign. However he is pain-free at this time, no nausea vomiting. It is unlikely that he had acute cholecystitis at this time. Patient will be discharged home, he will need to follow-up with a surgeon for outpatient evaluation and treatment. Patient is amenable to plan of care. (LI BEAUCHAMP DO) Dragon Disclaimer: Dragon Disclaimer: This electronic medical record was generated, in whole or in part, using a voice recognition dictation system. (GENIE GAMBOA MD) Departure Departure: Impression: Primary Impression: Biliary colic Disposition: 01 DC HOME SELF CARE/HOMELESS Condition: IMPROVED Referrals: MCKINLEY FRAGOSO (PCP) FANY ACKERMAN MD Please call this General Surgeon for outpatient evaluation and treatment this week. Patient Instructions: Biliary Colic Additional Instructions: Thank you for visiting our Emergency Department. We appreciate you trusting us with your care. If any additional problems come up don't hesitate to return to visit us. Please follow up with your primary care provider so they can plan additional care if needed and know about the problem that you had. If symptoms worsen come back to the Emergency Department. Any concerning symptoms that start such as chest pain, shortness of air, weakness or numbness on one side of the body, running high fevers or any other concerning symptoms return to the ER. Dragon Disclaimer This chart was dictated in whole or in part using Voice Recognition software in a busy, high-work load, and often noisy Emergency Department environment. It may contain unintended and wholly unrecognized errors or omissions. (GENIE GAMBOA MD) GENIE GAMBOA MD Jul 18, 2020 03:56 LI BEAUCHAMP DO Jul 18, 2020 09:22
[2020-07-18] MEDS ORDERED: IV RINGERS SOLUTION,LACTATED 1,000 ML IV SCH (04:15)
[2020-07-18 04:26] LABS: BASO # 0.1 x10^3/uL (0.0-0.2); BASO % 1 % (0-3); EOS # 0.3 x10^3/uL (0.0-0.7); EOS % 5 % (0-3); HEMOGLOBIN 15.4 g/dL (13.0-17.5); LYMPH # 1.1 x10^3/uL (1.0-4.8); LYMPH % 18 % (24-48); MEAN CORPUSCULAR HEMOGLOBIN 31 pg (25-35); MEAN CORPUSCULAR HGB CONC 34 g/dL (31-37); MEAN CORPUSCULAR VOLUME 92 fL (79-100); MONO # 0.5 x10^3/uL (0.0-1.1); MONO % 9 % (0-9); NEUT % 67 % (31-73); PLATELET COUNT 231 x10^3/uL (140-400); RED BLOOD COUNT 5.01 x10^6/uL (4.30-5.70); RED CELL DISTRIBUTION WIDTH 14.8 % (11.5-14.5); WHITE BLOOD COUNT 5.9 x10^3/uL (4.0-11.0)
--- NOTE | 2020-07-18 04:26 | EKG ---
[address] [address] Test Date: 2020-07-18 Test Time: 04:15:59 Pat Name: WINDY MAZA Department: Room: Gender: M Home Care Rn: BRETT : 1955 Requested By: GENIE GAMBOA Order Number: [id number] Reading MD: Measurements Intervals [place] Rate: 76 P: 36 TN: 188 QRS: 84 QRSD: 80 T: 30 QT: 360 QTc: 409 Interpretive Statements SINUS RHYTHM LOW LIMB LEAD VOLTAGE NO SPECIFIC ECG ABNORMALITIES RI6.02 No previous ECG available for comparison
[2020-07-18] MEDS ORDERED: ONDANSETRON PF 4 MG/2 ML VIAL. IVP ONE (04:30)
[2020-07-18] MEDS ORDERED: MAGNESIUM HYDROXIDE 2,400 MG/30 ML ORAL.SUSP. PO ONE (04:30)
[2020-07-18] MEDS ORDERED: KETOROLAC 30 MG/ML VIAL. IVP ONE (04:30)
[2020-07-18] MEDS ORDERED: MORPHINE SULFATE 10 MG/ML SYRINGE. SQ ONE (04:30)
[2020-07-18] MEDS ORDERED: FAMOTIDINE 20 MG/2 ML VIAL IVP ONE (04:30)
[2020-07-18 04:53] LABS: CALCIUM 9.5 mg/dL (8.5-10.1); CREATININE 1.2 mg/dL (0.7-1.3); GFR 61.3; POTASSIUM 3.9 mmol/L (3.5-5.1)
[2020-07-18 04:59] LABS: ALBUMIN 3.6 g/dL (3.4-5.0); DIRECT BILIRUBIN 0.1 mg/dL (0.0-0.2); TOTAL BILIRUBIN 0.4 mg/dL (0.2-1.0)
[2020-07-18] MEDS ORDERED: IOHEXOL 300 MG/ML 75 ML VIAL. IV ONE (05:00)
[2020-07-18] MEDS ORDERED: IOHEXOL 240 MG/ML 50ML VIAL. PO ONE (05:00)
[2020-07-18] MEDS ORDERED: CONTRAST GIVEN. MC PRN (05:15)
--- NOTE | 2020-07-18 05:44 | RAD ---
PA chest and AP upright supine abdomen x-rays HISTORY: Epigastric abdominal pain. FINDINGS: Heart size normal. Mediastinum is unremarkable. No pulmonary opacities. No pleural effusion s. No pneumoperitoneum. Mild volume of stool. No dilated bowel loops or abnormal air-fluid levels. Trip finesse and soft tissues are unremarkable. There is a left pelvic indeterminate 4 mm calcification, stati stically most likely a phlebolith, although if there is a history of renal colic symptoms a distal le ft ureteral calculus at the UVJ short also be considered. IMPRESSION: No bowel obstruction. No acute process in the chest. Pelvic calcification as described ab ove. Electronically signed by: Pb Carter MD (07/18/2020 5:42 AM) [facility]
--- NOTE | 2020-07-18 07:26 | RAD ---
Study: CT abdomen/pelvis with intravenous contrast Indication: Right upper quadrant pain. Comparison: Correlation is made to a CT chest from 10/14/2019 Technique: Helical CT imaging performed of the abdomen and pelvis after the intravenous administratio n of 75 cc contrast. Sagittal and coronal reformats were obtained. One or more of the following individualized dose reduction techniques were utilized for this examinat ion: 1. Automated exposure control 2. Adjustment of the mA and/or kV according to patient size 3. Use of iterative reconstruction technique. Findings: No acute abnormality at the lower chest. Suspected mild hepatic steatosis. Gallstones with the dominant stone located within the proximal body segment. On the coronal images, faint haziness of the pericholecystic fat. Nondilated biliary tree. Within normal limits pancreas, spleen and adrenal glands. No complex renal cyst or mass. No nephrolit hiasis or collecting system dilatation. Urinary bladder wall thickness is within normal limits. Promi nence of the prostate gland measuring 4.7 cm transverse. Colonic diverticulosis without diverticuliti s. Normal appendix. Nonobstructed small bowel. Poorly evaluated stomach on account of underdistention . Within normal limits major vasculature. Small fat-containing umbilical hernia. No concerning lymph no xavi based on size. No free fluid or pneumoperitoneum. Scattered degenerative osseous findings. No acu te or aggressive abnormality. Impression: 1. Gallstones with the large dominant stone located within the proximal body segment. Mild haziness of the pericholecystic fat raises the question of acute cholecystitis especially if there is right up per quadrant pain. Ultrasound or HIDA scan would allow for further assessment as deemed clinically ne cessary. 2. Additional chronic observations detailed in the body the report. Electronically signed by: PASTOR STEVENS MD (07/18/2020 7:23 AM) [id number]
[2020-07-18 09:05] LABS: BACTERIA,URINE 0 /HPF (0-FEW); BILIRUBIN,URINE NEG (NEG); CLARITY,URINE CLEAR; COLOR,URINE YELLOW; GLUCOSE,URINE NEG (NEG); NITRITE,URINE NEG (NEG); RBC,URINE OCC /HPF (0-2); UROBILINOGEN,URINE 0.2 mg/dL (0.2 mg/dL); WBC,URINE OCC /HPF (0-4)
--- NOTE | 2020-07-18 09:18 | RAD ---
US ABDOMEN LTD History: Right upper quadrant pain, history of gallstones. Comparison: CT abdomen and pelvis 07/18/2020. Technique: Sonographic examination of the right upper quadrant. Findings: Liver: The hepatic echotexture is diffusely increased. No focal hepatic lesions. Hepatopetal flow in the portal vein. Gallbladder: Multiple mobile shadowing gallstones are present in the gallbladder lumen. No gallbladde r wall thickening or pericholecystic fluid. Sonographic Mohan's sign is reportedly positive. Bile ducts: The common duct measures 5 mm. Pancreas: Partially visualized pancreas is unremarkable. The remainder of the pancreas is limited by bowel gas artifact. Right kidney: 12.6 cm in length. No focal lesion, calculi or hydronephrosis. Aorta/IVC: Visualized portions are unremarkable. Other: No ascites. Impression: 1. Cholelithiasis with positive sonographic Mohan's sign concerning for acute cholecystitis. No gal lbladder wall thickening or pericholecystic fluid as secondary signs of cholecystitis. 2. Hepatic steatosis. Electronically signed by: Nickolas Hurst MD (07/18/2020 9:16 AM) [facility]
== END 2020-07-18 09:55 | disposition home or self-care (01) ==
LOC: ER 03:35
DX: K80.50 Calculus of bile duct without cholangitis or cholecystitis without obstruction (principal); R11.2 Nausea with vomiting, unspecified; G47.30 Sleep apnea, unspecified; I10 Essential (primary) hypertension; I48.91 Unspecified atrial fibrillation; J45.909 Unspecified asthma, uncomplicated; K21.9 Gastro-esophageal reflux disease without esophagitis; Z88.8 Allergy status to other drugs, medicaments and biological substances
CPT/HCPCS: 36415; 74022; 74177; 76705; 80048; 80061; 80076; 81001; 82150; 82550; 83690; 84484; 85025; 85610; 85730; 93005; 96361; 96374; 99285; J1885; J7120; Q9966; Q9967

== ENCOUNTER → 2020-12-16 | Outpatient (CLI) | payer OTHER ==
--- NOTE | 2020-12-16 10:57 | RAD ---
XR KNEE_AP BILAT STANDING, XR KNEE_RT 1-2 VIEWS 12/16/2020 Reason: BILATERAL KNEE PAIN Comparison: None Technique: AP weightbearing view of the bilateral knees, 2 additional views of the right knee. Findings: No acute fracture or dislocation. There is mild tricompartmental osteoarthrosis with symmetric throug h the bilateral tibiofemoral compartments. No subluxation of the right patella. No significant degene rative change of the patellofemoral compartment. No right knee joint effusion. Soft tissues are withi n normal limits. Impression: No acute osseous abnormality. Electronically signed by: Juwan Bergeron (12/16/2020 10:55 AM) [id number]
== END ==
LOC: RAD 08:03
PROVIDERS: ATTEND Physician Assistant
DX: M17.0 Bilateral primary osteoarthritis of knee (principal)
CPT/HCPCS: 73560; 73565

== ENCOUNTER 2021-05-23 11:09 | Emergency (ER) | payer OTHER ==
[~2021-05-23] VITALS: Ht 182.9 cm; Wt 108.0 kg
[~2021-05-23 11:09] MED LIST changes: -CYCL-331 PO; +CYCL10TA19 PO
--- NOTE | 2021-05-23 11:15 | PHYS DOC ---
Past History Past Medical History: Gallstones, Other Additional Past Medical Histor: SVT Past Surgical History: No Surgical History Smoking: Non-smoker Alcohol Use: None Drug Use: None Adult General Chief Complaint Chief Complaint: ABDOMINAL PAIN HPI HPI Patient is a 65-year-old male presenting for abdominal pain. Onset was approximately 30 minutes ago, 30 minutes after ingesting a questionable frozen and potentially breakfast sandwich. Since symptom onset, nothing known is made better, p.o. intake is made worse. Reports generalized abdominal pain that patient states is 10/10 in severity and " feels like something is going to rip out of me". Timing of symptoms has been constant since onset. In addition to ripping type pain, he admits he is nauseous and has had several episodes of nonbloody nonbilious emesis. Denies any recent sick contacts, travel, other concerning ingestions or known mechanism of injury. Reports given his numerous comorbid conditions he is otherwise been at baseline health Review of Systems Review of Systems Fourteen body systems of review of systems have been reviewed. See HPI for pertinent positives and negative responses, other llanes all other systems are negative, non-pertinent or non-contributory Allergies Allergies Allergies Coded Allergies Type Severity Reaction Last Updated Verified midazolam HCl Allergy Mild HEADACHE 07/18/20 Yes Physical Exam Physical Exam Constitutional: Well developed, well nourished and obese, acute distress due to pain HENT: Normocephalic, atraumatic, bilateral external ears normal, oropharynx moist, no oral exudates, nose normal. Eyes: PERRLA, EOMI, conjunctiva normal, no discharge. Neck: Normal range of motion, no tenderness, supple, no stridor. Cardiovascular: Heart rate regular, sinus rhythm, no murmurs rubs or gallops Lungs & Thorax: Bilateral breath sounds clear to auscultation Abdomen: Bowel sounds normal, distended, protuberant, generalized tenderness with guarding present, no rebound no masses, no pulsatile masses. Skin: Warm, dry, no erythema, no rash. Back: No tenderness, no CVA tenderness. Extremities: No tenderness, no cyanosis, no clubbing, ROM intact, no edema. Neurologic: Alert and oriented X 3, grossly normal motor & sensory function, no focal deficits noted. Psychologic: Anxious affect and mood Current Patient Data Vital Signs Vital Signs Date Time Temp Pulse Resp B/P (MAP) Pulse Ox O2 Delivery O2 Flow Rate FiO2 05/23/21 11:12 98.3 97 16 129/96 (107) 97 Room Air Vital Signs Date Time Temp Pulse Resp B/P (MAP) Pulse Ox O2 Delivery O2 Flow Rate FiO2 05/23/21 11:12 98.3 97 16 129/96 (107) 97 Room Air Lab Results Laboratory Tests Test 05/23/21 11:36 05/23/21 11:39 White Blood Count 7.5 x10^3/uL Red Blood Count 5.26 x10^6/uL Hemoglobin 16.4 g/dL Hematocrit 48.2 % Mean Corpuscular Volume 92 fL Mean Corpuscular Hemoglobin 31 pg Mean Corpuscular Hemoglobin Concent 34 g/dL Red Cell Distribution Width 14.4 % Platelet Count 294 x10^3/uL Neutrophils (%) (Auto) 76 % Lymphocytes (%) (Auto) 15 % Monocytes (%) (Auto) 8 % Eosinophils (%) (Auto) 1 % Basophils (%) (Auto) 0 % Neutrophils # (Auto) 5.7 x10^3uL Lymphocytes # (Auto) 1.1 x10^3/uL Monocytes # (Auto) 0.6 x10^3/uL Eosinophils # (Auto) 0.1 x10^3/uL Basophils # (Auto) 0.0 x10^3/uL Sodium Level 139 mmol/L Potassium Level 4.5 mmol/L Chloride Level 104 mmol/L Carbon Dioxide Level 23 mmol/L Anion Gap 12 Blood Urea Nitrogen 14 mg/dL Creatinine 1.2 mg/dL Estimated GFR (Cockcroft-Gault) 61.1 BUN/Creatinine Ratio 12 Glucose Level 126 mg/dL Lactic Acid Level 2.2 mmol/L Calcium Level 10.0 mg/dL Total Bilirubin 0.8 mg/dL Aspartate Amino Transf (AST/SGOT) 104 U/L Alanine Aminotransferase (ALT/SGPT) 112 U/L Alkaline Phosphatase 96 U/L Troponin I High Sensitivity 5 ng/L Total Protein 6.9 g/dL Albumin 4.1 g/dL Albumin/Globulin Ratio 1.5 Lipase 90 U/L Influenza Type A (Rapid) Negative Influenza Type B (Rapid) Negative SARS-CoV-2 Antigen (Rapid) Negative Current Medications Medications (Trade) Dose Ordered Sig/Davin Route PRN Reason Start Time Stop Time Status Last Admin Dose Admin Fentanyl Citrate (Fentanyl 2ml Vial) 75 mcg 1X ONCE IVP 05/23/21 11:30 05/23/21 11:33 DC 05/23/21 11:54 Pantoprazole Sodium (Protonix Vial) 40 mg 1X ONCE IVP 05/23/21 11:45 05/23/21 11:46 DC 05/23/21 11:54 Sodium Chloride 500 ml @ 0 mls/hr 1X ONCE IV 05/23/21 12:30 05/23/21 12:36 DC 05/23/21 12:30 EKG EKG EKG ordered and interpreted by myself at 1142 hrs. is sinus rhythm at 83 bpm, unremarkable intervals, no axis deviation, no obvious ischemic findings, no STEMI Radiology/Procedures Radiology/Procedures EXAM: Chest, single view. HISTORY: Epigastric pain. COMPARISON: 08/23/2019 FINDINGS: A frontal view of the chest is obtained. There is stable bilateral infrahilar atelectasis or scarring. There is no consolidation, pleural effusion or pneumothorax. The heart is stable in size. IMPRESSION: No acute pulmonary finding. Electronically signed by: Jigna Sanchez MD (05/23/2021 11:54 AM) [id number] ////////////////////////////////////// INDICATION: Reason: EPIGASTRIC MIDLINE PAIN / Spl. Instructions: / History: COMPARISON: August 2020 TECHNIQUE: Axial CT images were obtained through the abdomen and pelvis without intravenous contrast. One or more of the following individualized dose reduction techniques were utilized for this examination: 1. Automated exposure control; 2. Adjustment of the mA and/or kV according to patient size; 3. Use of iterative reconstruction technique. FINDINGS: Subpleural nodule at the left lung base measuring up to about 6 mm. There is also small nodule at the right lung base. Linear opacity lung bases could be atelectasis or scarring. Fat-containing right greater than left inguinal hernia. Vascular: No abdominal aortic aneurysm. Hepatobiliary: Postcholecystectomy changes. No intrahepatic bile duct dilation. Subcentimeter liver lesion which is too small to characterize but a common finding. Pancreas: No peripancreatic edema. Spleen: Spleen unremarkable. Renal/Bladder: No hydronephrosis. Gastrointestinal: Colonic diverticulosis. Moderate stool within the colon. Fat- containing umbilical hernia. No periappendiceal inflammatory changes. Degenerative changes spine. Mild compression deformity of T12 vertebral body. IMPRESSION: * No evidence of bowel obstruction or appendicitis. * Nodules at the lung bases are again seen. Electronically signed by: Monster Han MD (05/23/2021 12:18 PM) [id number] Heart Score C/O Chest Pain: No Risk Factors: Risk Factors: DM, Current or recent (<one month) smoker, HTN, HLP, family history of CAD, obesity. Risk Scores: Risk Factors: DM, Current or recent (<one month) smoker, HTN, HLP, family history of CAD, obesity. Course & Med Decision Making Course & Med Decision Making ABCs unremarkable HPI and comprehensive physical exam nonconcerning for any emergent or surgical issues No indication for further diagnostic ER workup, intervention, or hospitalization at this time Patient symptoms improved with provided ER intervention. Discussed most likely diagnosis of constipation versus gas pain. Disclosed might be an acute presentation more concerning pathology but based on ER work-up today this is unlikely During decision to discharge home with new prescription for PPI, and supportive care practices for constipation and need for close PCP follow-up for repeat evaluation Dragon Disclaimer Dragon Disclaimer This electronic medical record was generated, in whole or in part, using a voice recognition dictation system. Departure Departure: Impression: Primary Impression: Abdominal pain Disposition: HOME / SELF CARE / HOMELESS Condition: STABLE Referrals: MCKINLEY FRAGOSO (PCP) Additional Instructions: You have been evaluated in the Emergency Department today for abdominal pain. Your evaluation was not suggestive of any emergent condition requiring medical intervention at this time. However, some abdominal problems make take more time to appear. Therefore, it is important for you to watch for any new symptoms or worsening of your current condition. Please continue good supportive care practices such as utilizing stool softeners, a stomach acid medicine, and avoiding any highly caffeinated/spicy/fatty foods Please contact your primary care physician to review ER visit today and need for close outpatient follow-up. Return to the Emergency Department if you experience worsening pain, persistent fevers greater than 100.4, recurrent vomiting, blood in vomit, blood in stool, dark tarry stool, chest pain, difficulty breathing, or any other concerning symptoms. Scripts Pantoprazole Sodium (PROTONIX) 20 Mg Tablet.dr 1 TAB PO DAILY for abdominal pain, #30 TAB Prov: TRESA BAE DO 05/23/21 TRESA BAE DO May 23, 2021 11:15
[2021-05-23] MEDS ORDERED: PANTOPRAZOLE IV 40 MG VIAL. IVP ONE (11:45)
--- NOTE | 2021-05-23 11:46 | EKG ---
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
--- NOTE | 2021-05-23 11:56 | RAD ---
EXAM: Chest, single view. HISTORY: Epigastric pain. COMPARISON: 08/23/2019 FINDINGS: A frontal view of the chest is obtained. There is stable bilateral infrahilar atelectasis o r scarring. There is no consolidation, pleural effusion or pneumothorax. The heart is stable in size. IMPRESSION: No acute pulmonary finding. Electronically signed by: Jigna Sanchez MD (05/23/2021 11:54 AM) [id number]
[2021-05-23 12:07] LABS: BASO % 0 % (0-3); EOS # 0.1 x10^3/uL (0.0-0.7); EOS % 1 % (0-3); HEMATOCRIT 48.2 % (39.0-53.0); HEMOGLOBIN 16.4 g/dL (13.0-17.5); LYMPH # 1.1 x10^3/uL (1.0-4.8); LYMPH % 15 % (24-48); MEAN CORPUSCULAR HEMOGLOBIN 31 pg (25-35); MEAN CORPUSCULAR HGB CONC 34 g/dL (31-37); MEAN CORPUSCULAR VOLUME 92 fL (79-100); MONO # 0.6 x10^3/uL (0.0-1.1); MONO % 8 % (0-9); NEUT # 5.7 x10^3uL (1.8-7.7); NEUT % 76 % (31-73); PLATELET COUNT 294 x10^3/uL (140-400); RED BLOOD COUNT 5.26 x10^6/uL (4.30-5.70); RED CELL DISTRIBUTION WIDTH 14.4 % (11.5-14.5); WHITE BLOOD COUNT 7.5 x10^3/uL (4.0-11.0)
[2021-05-23 12:17] LABS: CREATININE 1.2 mg/dL (0.7-1.3); GFR 61.1; POTASSIUM 4.5 mmol/L (3.5-5.1)
--- NOTE | 2021-05-23 12:20 | RAD ---
INDICATION: Reason: EPIGASTRIC MIDLINE PAIN / Spl. Instructions: / History: COMPARISON: August 2020 TECHNIQUE: Axial CT images were obtained through the abdomen and pelvis without intravenous contrast. One or more of the following individualized dose reduction techniques were utilized for this examinat ion: 1. Automated exposure control; 2. Adjustment of the mA and/or kV according to patient size; 3 . Use of iterative reconstruction technique. FINDINGS: Subpleural nodule at the left lung base measuring up to about 6 mm. There is also small nodule at the right lung base. Linear opacity lung bases could be atelectasis or scarring. Fat-containing right greater than left inguinal hernia. Vascular: No abdominal aortic aneurysm. Hepatobiliary: Postcholecystectomy changes. No intrahepatic bile duct dilation. Subcentimeter liver l esion which is too small to characterize but a common finding. Pancreas: No peripancreatic edema. Spleen: Spleen unremarkable. Renal/Bladder: No hydronephrosis. Gastrointestinal: Colonic diverticulosis. Moderate stool within the colon. Fat-containing umbilical h ernia. No periappendiceal inflammatory changes. Degenerative changes spine. Mild compression deformity of T12 vertebral body. IMPRESSION: * No evidence of bowel obstruction or appendicitis. * Nodules at the lung bases are again seen. Electronically signed by: Monster Han MD (05/23/2021 12:18 PM) [id number]
[2021-05-23 12:28] LABS: INFLUENZA A PATIENT NEGATIVE (NEGATIVE); INFLUENZA B PATIENT NEGATIVE (NEGATIVE)
[2021-05-23] MEDS ORDERED: IV NORMAL SALINE 500ML 500 ML IV ONE (12:30)
[2021-05-23 12:32] LABS: ALBUMIN 4.1 g/dL (3.4-5.0); ALBUMIN/GLOBULIN RATIO 1.5 (1.0-1.7); TOTAL BILIRUBIN 0.8 mg/dL (0.2-1.0); TOTAL PROTEIN 6.9 g/dL (6.4-8.2)
[2021-05-23 12:33] VITALS: BP 126/82
[2021-05-23] MEDS ORDERED: PANT20TA58 PO (13:27)
== END 2021-05-23 13:44 | disposition home or self-care (01) ==
LOC: ER 11:09
DX: R10.84 Generalized abdominal pain (principal); R11.2 Nausea with vomiting, unspecified; Z20.822 Contact with and (suspected) exposure to COVID-19; Z88.8 Allergy status to other drugs, medicaments and biological substances
CPT/HCPCS: 36415; 71045; 74176; 80053; 83605; 83690; 84484; 85025; 87428; 93005; 96361; 96374; 96375; 99285; C9113; J3010; J7040